=== PATIENT | female | born 1985 | race African-American/Black ===

== ENCOUNTER 2019-01-29 10:08 | Emergency (ER) | payer OTHER ==
[~2019-01-29] VITALS: Ht 157.5 cm; Wt 90.7 kg
[2019-01-29 10:35] VITALS: BP_SYST 123
--- NOTE | 2019-01-29 10:42 | NUR ---
Patient and 11 month old son placed to ER bed 8 to gown for evaluation. Side rails up. Report given to .
--- NOTE | 2019-01-29 10:43 | NUR ---
ER at bedside examining patient.
--- NOTE | 2019-01-29 10:43 | NUR ---
RN introduces himself to the mother. she brings in her 11month old son with c/o discharge from both eyes and nose. Mothers c/o left earache.
--- NOTE | 2019-01-29 11:20 | NUR ---
Patient given written and verbal discharge instructions and verbalizes understanding. ER MD discussed with patient the results and treatment provided. Patient in stable condition. ID arm band removed. Rx of Augmentin given. Patient educated on pain management and to follow up with PMD. Pain Scale 2/10. Opportunity for questions provided and answered. Medication side effect fact sheet provided.
[2019-01-29 11:22] VITALS: BP_SYST 123
== END 2019-01-29 11:20 | disposition home or self-care (01) ==
LOC: SED 10:08
DX: H66.92 Otitis media, unspecified, left ear (principal)
CPT/HCPCS: 99283